=== PATIENT | male | born 1985 | race Caucasian/White ===

== ENCOUNTER 2019-03-04 09:54 | Emergency (ER) | payer MEDICAID ==
[~2019-03-04] VITALS: Ht 182.9 cm; Wt 72.7 kg
[2019-03-04 10:22] LABS: BASOPHILS % (AUTO) 0.4 % (0-1); EOSINOPHILS # (AUTO) 0.1 X10'3 (0-0.9); EOSINOPHILS % (AUTO) 1.5 % (0-6); HEMATOCRIT 44.2 % (42.0-52.0); HEMOGLOBIN 15.2 g/dl (14.0-17.9); LYMPHOCYTES # (AUTO) 1.4 X10'3 (1.1-4.8); LYMPHOCYTES % (AUTO) 33.2 % (21-51); MEAN CORPUSCULAR HEMOGLOBIN 32.1 PG (27.0-31.0); MEAN CORPUSCULAR HGB CONC 34.5 g/dL (33.0-36.5); MEAN CORPUSCULAR VOLUME 93.2 FL (78-98); MEAN PLATELET VOLUME 7.7 FL (7.4-10.4); MONOCYTES # (AUTO) 0.4 X10'3 (0-0.9); MONOCYTES % (AUTO) 8.6 % (2-12); NEUTROPHILS # (AUTO) 2.3 X10'3 (1.8-7.7); NEUTROPHILS % (AUTO) 56.3 % (42-75); PLATELET COUNT 194 X10'3 (140-440); RED BLOOD COUNT 4.74 X10'6 (4.70-6.10); RED CELL DISTRIBUTION WIDTH 12.7 % (11.5-14.5); WHITE BLOOD COUNT 4.2 X10'3 (4.5-11.0)
--- NOTE | 2019-03-04 11:07 | NUR ---
PATIENT SEES [facility] FOR HIS DX SCHIZOPHRENIA; TAKES 2 MG RISPERIDAL IN AM AND 4 MG RISPERIDAL AT HS. PATIENT DOES NOT FEEL LIKE HIS MEDICATION IS WORKING FOR HIM. PATIENT STATES THAT HE TOOK HIS 2MG RISPERIDAL THIS AM. PATIENT HAS A 1200 APPOINTMENT WITH DOE AT [facility] TOMORROW MARCH 05, 2019
--- NOTE | 2019-03-04 11:10 | NUR ---
PER HONING MACHINE OPERATOR TOOL BAKARI, PATIENT MOVED TO OVERFLOW AREA WHERE RN WILL INITIATE AND COMPLETE INTAKE
--- NOTE | 2019-03-04 11:11 | NUR ---
PATIENT CHANGED INTO GREEN PANTS AND SHIRT; [employer] TO INVENTORY AND LOCK UP BELONGINGS
--- NOTE | 2019-03-04 11:15 | NUR ---
Patient moved form Main ER to Bed 24. Pleasant and polite. Asked for and given a urine specimen by patient. Urine immediately sent to lab.
[2019-03-04 11:17] LABS: ALANINE AMINOTRANSFERASE 17 U/L (12-78); ALBUMIN/GLOBULIN RATIO 1.2 (1.1-1.5); ALKALINE PHOSPHATASE 56 IU/L (46-116); ANION GAP 7 (8-16); ASPARTATE AMINO TRANSFERASE 12 U/L (10-37); BILIRUBIN,TOTAL 0.5 MG/DL (0.1-1.0); BLOOD UREA NITROGEN 9 MG/DL (7-18); BUN/CREATININE RATIO 8.7 (5.4-32.0); CALCIUM 8.9 MG/DL (8.5-10.1); CHLORIDE 104 MMOL/L (99-107); CREATININE 1.03 MG/DL (0.60-1.10); GLUCOSE 94 MG/DL (70-104); POTASSIUM 4.1 MMOL/L (3.5-5.1); SODIUM 139 MMOL/L (135-145); TOTAL CARBON DIOXIDE 28.2 MMOL/L (24-32); TOTAL PROTEIN 7.3 G/DL (6.4-8.2); eGFR 83 ML/MIN
[2019-03-04 11:27] LABS: ETHANOL < 0.010 GM/DL (0.0-0.010)
--- NOTE | 2019-03-04 11:30 | NUR ---
Patient in bed with covers over his head. Asked to keep covers away from his head. Patient agreed. Conversation initiated. Patient states he was brought here by the police from the [employer] [place] "after I started yelling out at the [place] this morning." Patient unsure about why he was yelling. "I just lost it after I ate breakfast." Went on to say "I want to be euthanized. I don't want to live the life I have now." Unable to support this statement with details. Preoccupied with what he eats. States "I stay away from processed sugars and foods like that. I found out a candy bar costs as much as baby food so I eat baby food and fruit. Last night I had pizza at the [place]. I don't want to seem ungrateful."
[2019-03-04 11:48] LABS: URINE AMPHETAMINE SCREEN NEGATIVE (Neg); URINE BARBITUATE SCREEN NEGATIVE (Neg); URINE BENZODIAZEPINES SCREEN NEGATIVE (Neg); URINE CANNABINOID SCREEN POSITIVE (Neg); URINE COCAINE SCREEN NEGATIVE (Neg); URINE METHADONE SCREEN NEGATIVE (Neg); URINE OPIATE SCREEN NEGATIVE (Neg); URINE PHENCYCLIDINE SCREEN NEGATIVE (Neg)
--- NOTE | 2019-03-04 13:45 | NUR ---
relieving RN for lunch, pt is resting quietly on bed, resp even and unlabored
--- NOTE | 2019-03-04 14:25 | NUR ---
Patient sleeping soundly at this time, bundled under his covers. Mother called patient. Informed he was sleeping. Requested she call back in an hour.
[2019-03-04] MEDS ORDERED: RISP2TAB3 PO (15:09)
[2019-03-04] MEDS ORDERED: RISP4TAB2 PO (15:09)
--- NOTE | 2019-03-04 16:00 | NUR ---
Awakened and informed about call from mother. Patient did not want to speak with mother at this time. Stated "You have my permission to speak with her about anything."
--- NOTE | 2019-03-04 17:25 | NUR ---
Gerardo from [facility] at bedside to evaluate patient for possible 5150 status.
--- NOTE | 2019-03-04 17:45 | NUR ---
Patient meets criteria for [address] from [facility]. Patient informed of this information. States, "Yes. I need to be evaluated for 72 hours."
--- NOTE | 2019-03-04 17:50 | NUR ---
Mother's Contact Phone#:
[2019-03-04] MEDS ORDERED: risperiDONE 2mg tablet PO SCH (21:00)
--- NOTE | 2019-03-04 21:00 | NUR ---
PATIENT UP TO USE THE RESTROOM, POLITE, APPROPRIATE
--- NOTE | 2019-03-04 23:00 | NUR ---
MARICRUZN APPEARS SHREIDAN SLEEPING ON HIS RIGHT SIDE, RR EVEN UNLABORED
--- NOTE | 2019-03-05 01:00 | NUR ---
PATIENT APPEARS TO BE SLEEPING ON HIS BACK. RR EVEN UNLABORED
--- NOTE | 2019-03-05 03:10 | NUR ---
[facility] CALLED, SPOKE WITH FORTUNATO HAYWARD FOR RN UPDATE RECEIVED PACKET BUT NO TSH, NO UA, SPOKE TO DR CHERY: ORDERS RECIEVED
--- NOTE | 2019-03-05 03:11 | NUR ---
[facility] FAX [phone]
--- NOTE | 2019-03-05 03:33 | NUR ---
PATIENT APPEARS TO BE SLEEPING ON HIS LEFT SIDE RR EVEN UNLABORED
[2019-03-05 05:01] LABS: CLARITY,URINE CLEAR (Clear); COLOR,URINE YELLOW (Yellow); GLUCOSE, URINE NEGATIVE (Neg); KETONES,URINE NEGATIVE (Neg); LEUKOCYTE ESTERASE ,URINE NEGATIVE (Neg); NITRITES, URINE NEGATIVE (Neg); OCCULT BLOOD,URINE NEGATIVE (Neg); PH,URINE 6.5 (4.8-8.0); PROTEIN,URINE NEGATIVE (Neg); UROBILINOGEN,URINE 0.2 E.U/dL (0.2-1.0)
[2019-03-05 05:04] LABS: UA COLLECTION TYPE CLN CATCH MIDSTREAM
--- NOTE | 2019-03-05 06:13 | NUR ---
YESY HORN [facility] CALLED FOR TSH AND UA LAB RESULTS; YESY BUCIO STATED THAT SINCE THE LABS ARE NOT COMPLETED, THE PATIENT MAY NOT BE PLACED TODAY
--- NOTE | 2019-03-05 06:15 | NUR ---
REPORT TO PELON MARTINEZ
--- NOTE | 2019-03-05 06:20 | NUR ---
PELON RN IS AWARE THAT LABS NEED TO BE FAXED TO [facility]
--- NOTE | 2019-03-05 06:30 | NUR ---
Pt. asleep upon change of shift observation. Color and breathing WNL. Undisturbed at this time.
[2019-03-05] MEDS ORDERED: risperiDONE 2mg tablet PO SCH (08:00)
--- NOTE | 2019-03-05 08:30 | NUR ---
Awakened for breakfast tray and AM medication. Pleasant upon staff approach. Talking at length about using tax dollars to fund housing for the homeless. Speaks quietly, gently and with sincerity. Ate 100% of his food. Stated "I ate a meal for two. Thank you. Thank you."
--- NOTE | 2019-03-05 10:30 | NUR ---
Lab work obtained per request of [facility] Gael Rogers. Results Faxed to [facility].
--- NOTE | 2019-03-05 11:15 | NUR ---
Call received from Carmelita at the [facility] office stating patient was accepted at [facility] and would be picked up at 1315.
--- NOTE | 2019-03-05 12:30 | NUR ---
Patient slept throughout the morning, getting up only to use the bathroom.
--- NOTE | 2019-03-05 12:50 | NUR ---
Served lunch tray. Ate 100% of his meal.
--- NOTE | 2019-03-05 13:30 | NUR ---
Public Service Administrator here from [facility] to transport patient to [facility]. Patient dressed in his own clothes. Public Service Administrator given all patient's belongings including a knife and wallet locked up in Security and Registration. Wallet contained $150.00. Patient ambulated out of unit accompanied by Security.
[2019-03-05 16:57] VITALS: BP 115/64
== END 2019-03-05 13:30 ==
LOC: ER 09:55
DX: F32.9 Major depressive disorder, single episode, unspecified (principal); F17.200 Nicotine dependence, unspecified, uncomplicated; F12.90 Cannabis use, unspecified, uncomplicated
CPT/HCPCS: 36415; 80053; 80305; 80320; 81003; 84443; 85025; 99285